=== PATIENT | male | born 1975 | race Caucasian/White ===

== ENCOUNTER 2016-03-24 18:46 | Emergency (ER) | payer MEDICAID ==
[2016-03-24 19:00] VITALS: TEMP 98.1
--- NOTE | 2016-03-24 19:17 | EDPHY ---
H & P Time Seen by Provider: 03/24/16 19:17 HPI/ROS: CHIEF COMPLAINT: Sore throat HISTORY OF PRESENT ILLNESS: Patient had a sore throat around [place] which lasted about a week and then 7 days ago it reoccurred, worse last 24 hours. Today he presented to [facility] with severe sore throat which is worse with swallowing. Associated chills and fatigue and sinus pressure. Radiates up the right side of his face to his ear. Not associated with difficulty breathing but he does have a hoarse voice. REVIEW OF SYSTEMS: Eye: no change in vision ENT: HPI Cardiac: no chest pain or syncope Pulmonary: no cough or SOB Abdomen: no vomiting, diarrhea, abdominal pain Musculoskeletal: no back pain Skin: no rash Neuro: no headache Constitutional: HPI : no urinary symptoms A comprehensive 10 point review of systems is otherwise negative aside from elements mentioned in the history of present illness. PAST MEDICAL HISTORY: Asthma, no diabetes. Social history: Nonsmoker, did not drive here. General Appearance: Alert and conversant, cooperative. Eyes: No scleral icterus. ENT, Mouth: Patient has peritonsillar swelling on the right with uvular deviation to the left. No trismus. He does have a muffled voice. Dry mucous membranes. Respiratory: Normal respiratory effort, breath sounds equal, lungs are clear to auscultation. No stridor Cardiovascular: Regular rate and rhythm. Gastrointestinal: Abdomen is soft and non tender. Neurological: Alert and oriented x3. Normally conversant. Face symmetric, ambulatory. Skin: Warm and dry, no rashes. Musculoskeletal: Normal range of motion of the neck without meningeal signs. Psychiatric: Not agitated. Emergency Department course/MDM: Patient has peritonsillar abscess on the right side is mildly clinically dehydrated. Does not have any evidence of airway compromise. Unasyn 3 g IV, normal saline 2 L IV, Dilaudid 0.5 mg IV, dexamethasone 10 mg IV. Consultation with ENT Dr. Garcia 193 will see in ED. Here at 2004. 2049: Abscess drained by Dr. Garcia, outpatient antibiotics and clinical follow-up arranged by him personally, his recommendation is DC with clinic followup next week. Smoking Status: Never smoked Constitutional: Initial Vital Signs Temperature (C) 36.7 C 03/24/16 18:56 Heart Rate 104 H 03/24/16 18:56 Respiratory Rate 22 H 03/24/16 18:56 Blood Pressure 117/79 03/24/16 18:56 O2 Sat (%) 95 03/24/16 18:56 O2 Delivery Mode Room Air Allergies/Adverse Reactions: No Known Allergies Allergy (Verified 03/24/16 18:56) Home Medications: Medication Instructions Recorded Albuterol [Proventil Inhaler HFA 1 - 2 puffs IH Q4PRN PRN #1 mdi 06/30/15 (*)] Adderall 10 MG (*) 03/24/16 Medical Decision Making Differential Diagnosis: Differential considered including but not limited to tonsillitis, peritonsillar abscess, epiglottitis, retropharyngeal abscess, Pardeep's angina. - Data Points Medications Given: Discontinued Medications Dexamethasone (Decadron Injection) 10 mg IVP EDNOW ONE Stop: 03/24/16 19:29 Last Admin: 03/24/16 19:46 Dose: 10 mg Hydromorphone HCl (Dilaudid) 0.5 mg IVP EDNOW ONE Stop: 03/24/16 19:29 Last Admin: 03/24/16 19:46 Dose: 0.5 mg Hydromorphone HCl (Dilaudid) 0.5 mg IVP EDNOW ONE Stop: 03/24/16 20:36 Last Admin: 03/24/16 20:36 Dose: 0.5 mg Sodium Chloride (Ns) 1,000 mls @ 0 mls/hr IV ONCE ONE PRN Reason: Wide Open Stop: 03/24/16 19:29 Last Admin: 03/24/16 20:15 Dose: 1,000 mls Sodium Chloride (Ns) 1,000 mls @ 0 mls/hr IV ONCE ONE PRN Reason: Wide Open Stop: 03/24/16 19:29 Last Admin: 03/24/16 19:40 Dose: 1,000 mls Ampicillin Sodium/Sulbactam (Sodium 3 gm/ Sodium Chloride) 100 mls @ 200 mls/ hr IV EDNOW ONE PRN Reason: Protocol Stop: 03/24/16 19:56 Last Admin: 03/24/16 20:00 Dose: 100 mls Departure - Departure Disposition: Home, Routine, Self-Care Clinical Impression: Peritonsillar abscess Condition: Good Instructions: Peritonsillar Abscess (ED) Referrals: Sergei Garcia MD [Medical Doctor] - As per Instructions (ENT followup per Dr. Garcia)
[2016-03-24] MEDS ORDERED: AMPICILLIN/SULBACTAM 3 GM in NS 100 ML IV ONE (19:27)
[2016-03-24] MEDS ORDERED: HYDROmorphONE/DILAUDID 1 MG/ML SYR IVP ONE ×2 (19:28→20:35)
[2016-03-24] MEDS ORDERED: NS 1,000 ML IV ONE ×2 (19:28)
[2016-03-24] MEDS ORDERED: DEXAMETHASONE 10 MG/ML VIAL IVP ONE (19:28)
[2016-03-24] MEDS ORDERED: HYDROmorphONE/DILAUDID 1 MG/ML SYR ONE (20:22)
[2016-03-24 20:36] VITALS: RESP 16
[2016-03-24] MEDS ORDERED: OXYCODONE/APAP 5/325MG PREPACK#4 BTL TAKEHOME ONE (20:49)
[2016-03-24 21:03] VITALS: BP 134/80; PULSE 86; O2SAT 96
--- NOTE | 2016-03-24 23:37 | GCON ---
[f rep st] CONSULTATION ENT CONSULTATION NOTE DATE OF CONSULTATION: 03/24/2016 REFERRING PHYSICIAN: Mark Norris MD REASON FOR CONSULTATION: Concerns for possible right peritonsillar abscess. HISTORY: The patient is a 40-year-old man who states that he had an acute sore throat a couple weeks ago. This seemed to resolve and then he had recurrence of the pain focus mainly on the right side o f the throat which got progressively worse over the last few days to the point that he says he has be en unable to sleep for the last 36 hours. He denies any difficulty breathing. He went by [facility] this afternoon and they referred him here to the emergency department. He denies any history of recurrent sore throats or recurrent strep tonsillitis. MEDICAL ALLERGIES: None. MEDICATIONS: Albuterol as needed. SOCIAL HISTORY: The patient was born and raised in [place]. 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 REVIEW OF SYSTEMS: Negative for any history of easy bruising or prolonged bleeding. FAMILY HISTORY: Patient denies family history of bleeding disorders. PHYSICAL EXAM: GENERAL: Patient is healthy in appearance. ENT: Ear exam is normal bilaterally. T here are no signs of middle ear disease. Nasal exam anteriorly is clear. Oral cavity exam shows no evidence of any trismus. He has marked swelling of the right half of the soft palate with bulging of the palate downward as well as watery edema of the soft tissue in the uvula. The uvula was pushed a little but over to the left. The tonsil was enlarged and cryptic. Tongue has normal. Surprisingly , he has no trismus. Floor of mouth is normal on visual exam and on palpation. NECK: Exam is notab le for some tenderness along the right side of the neck, but he does not have any palpable adenopathy or fluctuance. Range of motion of the neck is good. PROCEDURE: After obtaining informed consent, procedure was performed. We discussed incision and migdalia inage of peritonsillar abscess and the risks which include, but are not limited to, pain, infection, bleeding, recurrence of the abscess, potential spread of infection which could be life threatening or require other further treatments. After answering questions, consent was signed and [email or web address]. At this point, I anesthetized the right this side of the soft palate and the peritonsillar region usi ng a total of 6 mL of a mixture of 8 cc of 1% lidocaine with 1:100,000 epinephrine with 1 cc of 0.25% Marcaine with 1:200,000 epinephrine and 1 cc of bicarbonate. I waited a number of minutes and then performed a 3 point needle aspiration. At the 2nd point where I placed the needle, I was able to asp irate 10 cc of pus. Upon removing the needle I then used the tip of the needle to make a 1 cm scratc h in the superficial mucosa. I then used a large curved hemostat to spread into the peritonsillar sp ginger and spread widely. I did not note any more loculations of pus. The patient tolerated the proced ure well. ESTIMATED BLOOD LOSS: Less than 5 cc. COMPLICATIONS: None. SPECIMENS: None. IMPRESSION: Right peritonsillar abscess. PLAN: The patient has received 10 mg of IV Decadron and 2 g of IV Unasyn. Will discharge him on a 1 0 day course of oral Augmentin 875 mg p.o. twice daily. He was also given a prescription for Percoce t 5 mg, oxycodone with 325 mg of acetaminophen 1-2 tablets p.o. q.6 hours p.r.n. for pain. Last pres cription is for Decadron 4 mg tablets 8 mg p.o. q.a.m. x2 days. DISCHARGE DIET: Regular. FOLLOW UP: In my clinic next week. Time spent in the care of the patient was 45 minutes. /[id number]/MODL
== END 2016-03-24 21:13 | disposition home or self-care (01) ==
PROC: 0C9PXZZ Drainage of Tonsils, External Approach (ICD-10-PCS; principal; 2016-03-24)
DX: J36 Peritonsillar abscess (principal); J45.909 Unspecified asthma, uncomplicated
CPT/HCPCS: 96365; J0295; J1170

== ENCOUNTER 2016-03-28 07:45 | Emergency (ER) | payer MEDICAID ==
[2016-03-28 07:52] VITALS: TEMP 97.3
--- NOTE | 2016-03-28 08:13 | EDPHY ---
HPI/HX/ROS/PE/MDM Narrative: CHIEF COMPLAINT: Throat pain, recent peritonsillar abscess I&D HPI: The patient is a 40 y/o male, who recently had a peritonsillar abscess drained, returning today complaining of increasing throat pain and swelling. He was evaluated in the ED on 03/24/16, 4 days ago, for a sore throat and ultimately diagnosed with a right peritonsillar abscess. Dr. Garcia drained the abscess and the patient was discharged with pain medications, antibiotics, and instructions to follow up this week. He was told to expect some swelling following the procedure but advised if the same pain and pressure returned he should come back to the ED. His pain increased to an 8/10 last night and is associated with throat swelling, difficulty eating, and chills. He states he has been compliant with his medications. He was able to drink a smoothie this morning. REVIEW OF SYSTEMS: Aside from elements discussed in the HPI, a comprehensive 10-point review of systems was reviewed and is negative. PMH: Asthma, peritonsillar abscess Prior medical records reviewed including ED visit 03/24/16 for peritonsillar abscess. SOCIAL HISTORY: [facility] patient. Nonsmoker. PHYSICAL EXAM: General:Patient is alert, in no acute distress. ENT:Eyes are normal to inspection. EN inspection normal. Uvula deviation to the left with severe swelling of right tonsil and swelling and tenderness of right mandible. No trismus. Neck: Normal inspection. Full range of motion. Respiratory:No respiratory distress. Breath sounds normal bilaterally. No stridor. Cardiovascular: Regular rate and rhythm. Strong peripheral pulses. Normal cap refill. Abdomen:The abdomen is nontender to palpation. There are no peritoneal signs. There are normal bowel sounds. Back: Normal to inspection. No tenderness to palpation. Skin: Normal color. No rash. Warm and dry. Extremities: Normal appearance. Full range of motion. Neuro: Oriented x3. Normal motor function. Normal sensory function. ED Course: This is a normally healthy 40 y/o male presenting with a recurrent right tonsillar abscess that was initially drained 4 days ago by ENT. His pain and swelling has worsened, particularly over the last 12 hours, and he now has difficulty swallowing. On exam, his right tonsil is swollen with uvula shift to the left. He has right mandible tenderness. He is afebrile here but complained of chills at home. No evidence of respiratory distress. He has been taking his Augmentin and pain medication as prescribed. IV established. Labs drawn including CBC, CHEM. Patient declines pain medication at this time. ENT paged. 7541: Consulted with Dr. Matthew, ENT. He will evaluate patient in the ED and plans to drain the abscess. 0920: WILBERT Higgins, ENT, is in the ED assessing patient. MDM: This patient presents with recurrent [employer]LET[employer] PH[employer]ICIAN despite antibiotics. There is no sign of airway emergency. Patient will undergo I/D in ENT suite per their request. Patient refuses admission. - Data Points Laboratory Results: Laboratory Results 03/28/16 08:20 03/28/16 08:44 03/28/16 03/28/16 08:44 08:20 WBC 7.60 10^3/uL (3.80-9.50) RBC 4.11 L 10^6/uL (4.40-6.38) Hgb 12.9 L g/dL (13.7-17.5) Hct 37.5 L % (40.0-51.0) MCV 91.2 fL (81.5-99.8) MCH 31.4 pg (27.9-34.1) MCHC 34.4 g/dL (32.4-36.7) RDW 12.1 % (11.5-15.2) Plt Count 415 H 10^3/uL (150-400) MPV 8.5 L fL (8.7-11.7) Neut % (Auto) 67.9 % (39.3-74.2) Lymph % (Auto) 21.1 % (15.0-45.0) Cottle % (Auto) 8.7 % (4.5-13.0) Eos % (Auto) 1.1 % (0.6-7.6) Baso % (Auto) 0.7 % (0.3-1.7) Nucleat RBC Rel Count 0.0 % (0.0-0.2) Absolute Neuts (auto) 5.17 10^3/uL (1.70-6.50) Absolute Lymphs (auto) 1.60 10^3/uL (1.00-3.00) Absolute Monos (auto) 0.66 10^3/uL (0.30-0.80) Absolute Eos (auto) 0.08 10^3/uL (0.03-0.40) Absolute Basos (auto) 0.05 10^3/uL (0.02-0.10) Absolute Nucleated RBC 0.00 10^3/uL (0-0.01) Immature Gran % 0.5 % (0.0-1.1) Immature Gran # 0.04 10^3/uL (0.00-0.10) Sodium 141 mEq/L (134-144) Potassium 4.0 mEq/L (3.5-5.2) Chloride 105 mEq/L (97-110) Carbon Dioxide 25 mEq/l (22-31) Anion Gap 11 mEq/L (8-16) BUN 17 mg/dL (7-23) Creatinine 0.7 mg/dL (0.7-1.3) Estimated GFR > 60 Glucose 117 H mg/dL (70-100) Calcium 8.5 mg/dL (8.5-10.4) Medications Given: Discontinued Medications Sodium Chloride (Ns) 1,000 mls @ 0 mls/hr IV ONCE ONE PRN Reason: Wide Open Stop: 03/28/16 08:15 Last Admin: 03/28/16 08:28 Dose: 1,000 mls General Time Seen by Provider: 03/28/16 08:02 Initial Vital Signs: Initial Vital Signs Temperature (C) 36.3 C 03/28/16 07:47 Heart Rate 93 03/28/16 07:47 Respiratory Rate 16 03/28/16 07:47 Blood Pressure 110/71 03/28/16 07:47 O2 Sat (%) 97 03/28/16 07:47 O2 Delivery Mode Room Air Allergies/Adverse Reactions: No Known Allergies Allergy (Verified 03/28/16 07:53) Home Medications: Medication Instructions Recorded Albuterol [Proventil Inhaler HFA 1 - 2 puffs IH Q4PRN PRN #1 mdi 06/30/15 (*)] Adderall 10 MG (*) 03/24/16 Augmentin 875 MG TAB (*) 03/28/16 Percocet 5-325 mg Tablet 03/28/16 Departure - Departure Disposition: Home, Routine, Self-Care Clinical Impression: Peritonsillar abscess Condition: Good Instructions: Peritonsillar Abscess (ED) Additional Instructions: Go directly to WILBERT Higgins's office. Referrals: [place] STATE,. [Primary Care Provider] - As per Instructions [facility] [Outside] - As per Instructions Sergei Garcia MD [Medical Doctor] - As per Instructions Report Scribed for: Sergei Carranza Report Scribed by: Mary Ellen Marley Date of Report: 03/28/16 Time of Report: 08:21 Physician Review and Approval Statement: Portions of this note were transcribed by an ED scribe. I personally performed the history, physical exam, and medical decision making; and confirm the accuracy of the information in the transcribed note.
[2016-03-28] MEDS ORDERED: NS 1,000 ML IV ONE (08:14)
[2016-03-28 08:45] LABS: % IMMATURE GRANULYOCYTES 0.5 % (0.0-1.1); ABSOLUTE IMMATURE GRANULOCYTES 0.04 10^3/uL (0.00-0.10); ADD DIFF? NO; ADD MORPH? NO; ADD SCAN? NO; ATYPICAL LYMPHOCYTE FLAG 0 (0-99); FRAGMENT RBC FLAG 0 (0-99); HEMATOCRIT 37.5 % (40.0-51.0); HEMOGLOBIN 12.9 g/dL (13.7-17.5); LEFT SHIFT FLG 0 (0-99); LIPEMIA HEMOLYSIS FLAG 90 (0-99); MEAN CELL HEMOGLOBIN 31.4 pg (27.9-34.1); MEAN CELL HEMOGLOBIN CONCENTR. 34.4 g/dL (32.4-36.7); MEAN CELL VOLUME 91.2 fL (81.5-99.8); MEAN PLATELET VOLUME 8.5 fL (8.7-11.7); PLATELET CLUMPS FLAG 20 (0-99); PLATELET COUNT 415 10^3/uL (150-400); RED BLOOD CELL COUNT 4.11 10^6/uL (4.40-6.38); RED CELL DISTRIBUTION WIDTH 12.1 % (11.5-15.2)
[2016-03-28 08:51] LABS: ANION GAP 11 mEq/L (8-16); CALCIUM 8.5 mg/dL (8.5-10.4); CARBON DIOXIDE 25 mEq/l (22-31); CHLORIDE 105 mEq/L (97-110); CREATININE 0.7 mg/dL (0.7-1.3); GLOMERULAR FILTRATION RATE > 60; GLUCOSE 117 mg/dL (70-100); SODIUM 141 mEq/L (134-144)
[2016-03-28 09:38] VITALS: BP 116/79; PULSE 83; RESP 14; O2SAT 93
--- NOTE | 2016-03-28 14:13 | GCON ---
[f rep st] CONSULTATION HISTORY OF PRESENT ILLNESS: This is a 40-year-old male, who presents to the emergency department wit h continued right-sided sore throat. The patient was seen in the emergency room on March 24, 2016 and was noted to have a right-sided peritonsillar abscess. This was drained by my supervising physic ej, Dr. Garcia. At that time, 10 cc of purulence was drained from his right peritonsillar absces s. The patient was discharged home on Augmentin, Decadron, and Percocet for pain management. The pa lynn states that his symptoms significantly improved. However, last evening he had gradual worsenin g of pain, as well as swelling. He was unable to sleep last night. Patient presents to the emergency room for further evaluation. ENT is consulted for evaluation of possible recurrent right-sided judy tonsillar abscess. PHYSICAL EXAM: GENERAL: A 40-year-old male, in no acute distress. HEAD AND FACE: Normal. He has no stridor. Voice is slightly muffled. Oropharynx shows a significant right-sided soft palate bulge with leftward uvular deviation. He does have fluctuance on palpation. NECK: Shows tenderness to t he right neck, though no significant lymphadenopathy. PROCEDURE: Informed consent was obtained for right-sided peritonsillar abscess incision and drainage . Hurricaine spray was used for topical anesthesia. 2 cc of lidocaine with epinephrine were then us ed for further local anesthesia. 18-gauge needle was then used for aspiration of approximately 6 cc of purulence. 11 blade scalpel was then used to incise the peritonsillar space. Copious amounts of further purulence were encountered. Approximately 20 cc of purulence was expressed throughout the p rocedure. Curved hemostats were then used to break up any further peritonsillar loculations. Patien t tolerated the procedure well. ASSESSMENT AND PLAN: This is a 40-year-old male with recurrent right-sided peritonsillar abscess. I did perform incision and drainage of this today for expression of approximately 20 cc of purulence. Patient tolerated it well. Given recurrent nature, I have switched the patient's antibiotics from A ugmentin to clindamycin. He will take this 4 times a day. I did refill his Percocet for pain manage ment, as well as gave him a repeat 4-day Decadron taper. He knows to follow up with our office if he has any further complaints. We did briefly discuss tonsillectomy in the future if this recurs again . 1. Switch from Augmentin to clindamycin. He will use this 4 times a day for the next 10 days. 2. Decadron taper 8 mg for 2 days, 4 mg for 2 days. 3. I did give him #20 more Percocet for pain management. 4. Patient knows that he is supposed knows to call our office if he has any further complaints. We did briefly discuss tonsillectomy in the future if this recurs. Thanks so much for allowing us to participate in care of this patient. If you have any further quest ions, please do not hesitate to contact our office. /[id number]/MODL
== END 2016-03-28 09:38 | disposition home or self-care (01) ==
DX: J36 Peritonsillar abscess (principal); J45.909 Unspecified asthma, uncomplicated